=== PATIENT | male | born 1950 | race Caucasian/White ===

== ENCOUNTER 2021-12-22 08:33 | Day surgery (SDC) | payer MEDICARE ==
[2021-12-22] MEDS ORDERED: Lidocaine 1% PF 5 ML VIAL ONE (08:56)
[2021-12-22] MEDS ORDERED: Sodium Bicarbonate 2.5 MEQ/5 ML VIAL ONE (08:56)
[2021-12-22 09:14] LABS: #Eosinphils 0.3 10x3/uL (0.0-0.5); #Monocytes 0.8 10x3/uL (0.0-1.1); %Basophils 0.3 % (0.0-2.0); %Eosinophils 2.9 % (0.0-6.0); %Lymphocytes 7.5 % (18.0-47.0); %Monocytes 8.8 % (0.0-10.0); %Neutrophils 79.4 % (40.0-75.0); Mean Corpuscular HGB CONC 32.7 g/dL (32.0-36.0); Mean Corpuscular Hemoglobin 29.9 pg (27.0-33.0); Mean Corpuscular Volume 91.3 fl (81.2-95.1); Mean Platelet Volume 9.4 fl (7.4-10.4); Platelet Count 266 10x3/uL (150-450); RBC Distribution Width 16.4 % (11.5-14.5); Red Blood Cell (RBC) Count 4.02 10x6/uL (4.32-5.72); White Blood Cell (WBC) Count 8.8 10x3/uL (3.5-10.5)
[2021-12-22 09:21] VITALS: BP 93/53; TEMP 98.9
[2021-12-22 09:24] LABS: INR-International Normal Ratio 1.1; PTT 29.8 sec (22.0-33.0); Prothrombin Time 11.9 sec (9.5-12.1)
[2021-12-22 09:27] LABS: ALT (SGPT) 38 U/L (8-55); AST (SGOT) 41 U/L (5-34); Albumin 3.5 g/dL (3.4-4.8); Alkaline Phosphatase 188 U/L (40-110); Anion Gap 12 mmol/L (10-20); BUN (Urea Nitrogen) 32 mg/dL (8.4-25.7); Calc. Creatinine Clearance 79 mL/min (70-130); Calcium 9.4 mg/dL (7.8-10.44); Carbon Dioxide 22 mmol/L (23-31); Chloride 105 mmol/L (98-107); Glucose 122 mg/dL (80-115); Potassium 4.1 mmol/L (3.5-5.1); Protein, Total 7.5 g/dL (5.8-8.1); Sodium 135 mmol/L (136-145)
[2021-12-22] MEDS ORDERED: Albumin 25% 100 ML ONE (09:44)
== END 2021-12-22 10:11 | disposition home or self-care (01) ==
LOC: CSHULT 08:33
PROVIDERS: ATTEND Physician Assistant Medical
DX: R18.8 Other ascites (principal); K74.60 Unspecified cirrhosis of liver
CPT/HCPCS: 49083; 80053; 85025; 85610; 85730; P9047

== ENCOUNTER 2022-01-20 09:57 | Day surgery (SDC) | payer MEDICARE ==
[2022-01-20] MEDS ORDERED: Sodium Bicarbonate 2.5 MEQ/5 ML VIAL ONE (10:26)
[2022-01-20] MEDS ORDERED: Lidocaine 1% PF 5 ML VIAL ONE (10:26)
[2022-01-20] MEDS ORDERED: Albumin 25% 100 ML ONE ×2 (10:26)
[2022-01-20 11:08] VITALS: BP 121/83; TEMP 97.3
[2022-01-21] MEDS ORDERED: FLU VACC QS2021-22(65YR UP)/PF 240 MCG/0.7 ML SYRINGE IM ONE (11:15)
== END 2022-01-20 12:29 | disposition home or self-care (01) ==
LOC: CSHULT 09:57
PROVIDERS: ATTEND Physician Assistant Medical
DX: R18.8 Other ascites (principal)
CPT/HCPCS: 49083; P9047

== ENCOUNTER 2022-02-09 07:46 | Day surgery (SDC) | payer MEDICARE, OTHER ==
[2022-02-09] MEDS ORDERED: Albumin 25% 100 ML ONE ×2 (08:06)
[2022-02-09] MEDS ORDERED: Sodium Bicarbonate 2.5 MEQ/5 ML VIAL ONE (08:07)
[2022-02-09] MEDS ORDERED: Lidocaine 1% PF 5 ML VIAL ONE (08:07)
[2022-02-09 08:19] VITALS: BP 125/75
[2022-02-09 08:55] LABS: #Eosinphils 0.1 10x3/uL (0.0-0.5); #Monocytes 0.8 10x3/uL (0.0-1.1); #Neutrophils 7.4 10x3/uL (1.5-8.4); %Basophils 0.3 % (0.0-2.0); %Eosinophils 0.9 % (0.0-6.0); %Lymphocytes 7.7 % (18.0-47.0); %Monocytes 8.9 % (0.0-10.0); %Neutrophils 81.1 % (40.0-75.0); Hemoglobin 13.2 g/dL (13.5-17.5); Mean Corpuscular HGB CONC 33.9 g/dL (32.0-36.0); Mean Corpuscular Hemoglobin 30.3 pg (27.0-33.0); Mean Corpuscular Volume 89.4 fl (81.2-95.1); Mean Platelet Volume 9.5 fl (7.4-10.4); Platelet Count 354 10x3/uL (150-450); RBC Distribution Width 14.7 % (11.5-14.5); Red Blood Cell (RBC) Count 4.35 10x6/uL (4.32-5.72); White Blood Cell (WBC) Count 9.1 10x3/uL (3.5-10.5)
[2022-02-09 08:58] LABS: PTT 26.8 sec (22.0-33.0)
== END 2022-02-09 09:25 | disposition home or self-care (01) ==
LOC: CSHULT 07:46
PROVIDERS: ATTEND Physician Assistant Medical
DX: R18.8 Other ascites (principal); K74.60 Unspecified cirrhosis of liver; I85.00 Esophageal varices without bleeding; K72.90 Hepatic failure, unspecified without coma; R19.7 Diarrhea, unspecified; Z79.899 Other long term (current) drug therapy
CPT/HCPCS: 49083; 85025; 85610; 85730; P9047